=== PATIENT | male | born 1995 | race Caucasian/White ===

== ENCOUNTER 2016-09-16 14:10 | Emergency (ER) | payer BC ==
[~2016-09-16] VITALS: Ht 185.4 cm; Wt 65.0 kg
[2016-09-16 14:14] VITALS: BP 121/71; PULSE 84; RESP 16; TEMP 98.1; O2SAT 97
[2016-09-16] MEDS ORDERED: PROPARACAINE HCL 0.5% OPHT SOLN 15 ML BTL RIGHT EYE ONE (14:30)
[2016-09-16] MEDS ORDERED: MAXI5O EACH EYE (14:31)
[2016-09-16] MEDS ORDERED: IBUP800T23 PO (14:31)
--- NOTE | 2016-09-16 14:36 | PD ---
HPI Chief Complaint: Eye Problems/Injury Time Seen by Provider: 14:31 Travel History International Travel<30 days: No Contact w/Intl Traveler<30days: No Traveled to known affect area: No History of Present Illness HPI 21-year-old male presents the emergency Department with right eye pain and tearing and redness since yesterday. Patient states he felt he may have gotten a foreign body in it while working at a local [employer]. Patient states he does wear contacts which he took last night has not placed back in. Patient denies visual impairment of any kind. He denies fever chills or other symptoms. Denies crusting in the eye this morning. Patient has photophobia and pain of 7/10. He has no known drug allergies. PFSH Past Medical History Medical History: Denies Significant Hx Tetanus Vaccination: < 5 Years Influenza Vaccination: No Social History Alcohol Use: Yes (SOCIAL) Tobacco Use: No Substance Use: No Allergies-Medications (Allergen,Severity, Reaction): Coded Allergies: No Known Allergies (Unverified , 09/16/16) Reported Meds & Prescriptions Reported Meds & Active Scripts Active No Active Prescriptions or Reported Medications Review of Systems Except as stated in HPI: all other systems reviewed are Neg General / Constitutional: No: Fever Eyes: Positive: Photophobia, Redness, Foreign Body Sensation, Pain, Tearing, No: Diploplia, Blurred Vision, Drainage, Blind Spots, Visual changes, Blindness HENT: No: Headaches Cardiovascular: No: Chest Pain or Discomfort Respiratory: No: Shortness of Breath Gastrointestinal: No: Abdominal Pain Genitourinary: No: Dysuria Musculoskeletal: No: Pain Skin: No Rash Neurologic: No: Weakness Psychiatric: No: Depression Endocrine: No: Polydipsia Hematologic/Lymphatic: No: Easy Bruising Physical Exam Narrative GENERAL: Patient has moderate distress. SKIN: Warm and dry. Normal color. Normal turgor. No rash. HEAD: Atraumatic. Normocephalic. EYES: Pupils equal and round. No scleral icterus. Mild to moderate conjunctival injection on the right with tearing. Eyes examined with fluorescein as well as a was lamp without obvious corneal abrasion or foreign body. ENT: No nasal bleeding or discharge. Mucous membranes pink and moist. Pharynx is normal. NECK: Trachea midline. Neck is supple nontender. CARDIOVASCULAR: Regular rate and rhythm. RESPIRATORY: No accessory muscle use. MUSCULOSKELETAL: Extremities without clubbing, cyanosis, or edema. No obvious deformities. NEUROLOGICAL: Awake and alert. No obvious cranial nerve deficits. Motor grossly within normal limits. Five out of 5 muscle strength in the arms and legs. Normal speech. PSYCHIATRIC: Appropriate mood and affect; insight and judgment normal. Data Data Last Documented VS Vital Signs Date Time Temp Pulse Resp B/P Pulse Ox O2 Delivery O2 Flow Rate FiO2 09/16/16 14:14 98.1 84 16 121/71 97 Orders Proparacaine 0.5% Opth Soln (Alcaine 0.5 (09/16/16 14:30) MDM Medical Decision Making Medical Screen Exam Complete: Yes Emergency Medical Condition: Yes Differential Diagnosis Ocular Foreign body. Corneal abrasion. Traumatic conjunctivitis Narrative Course Patient is medically stable at time of exam. Right eye anesthetized with proparacaine, and examined with Wood's lamp and fluorescein dye without obvious foreign body or corneal abrasion. Patient will be treated with Maxitrol ophthalmic drops for the next 7 days. Patient given ibuprofen 800 mg 3 times daily with food #30. Work note is given for today. Patient is not to use his contacts for 7 days. 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 Patient will be treated with Maxitrol ophthalmic drops for the next 7 days. Patient given ibuprofen 800 mg 3 times daily with food #30. Work note is given for today. Patient is not to use his contacts for 7 days. 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 Scripts [id number]-Lrhqizmwhdgex Opth Drops (Maxitrol Opth Drops)3.5-10,000-0.1 Mg-Units-% Susp1 Drop EACH EYE Q4H #1 BOTTLE Prov:Karen Staples MD 09/16/16 Ibuprofen 800 Mg [id number] Mg PO Q8H PRN (Pain/Inflammation) #30 TAB Prov:Karen Staples MD 09/16/16 Disposition: 01 DISCHARGE HOME Condition: Stable Juan Daniel,Eliu F. PA Sep 16, 2016 14:36
== END 2016-09-16 14:58 | disposition home or self-care (01) ==
LOC: PHEFT 14:10
DX: H10.31 Unspecified acute conjunctivitis, right eye (principal)
CPT/HCPCS: 99283

== ENCOUNTER 2017-08-17 13:29 | Emergency (ER) | payer BC, OTHER ==
[~2017-08-17] VITALS: Ht 185.4 cm; Wt 67.0 kg
[~2017-08-17 13:29] MED LIST: IBUP1TAB7 PO; MAXI5O EACH EYE
[2017-08-17 13:32] VITALS: BP 151/68; PULSE 94; RESP 16; TEMP 98.3; O2SAT 99
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
[2017-08-17] MEDS ORDERED: NORC5TAB PO (15:11)
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
[2017-08-17] MEDS ORDERED: ACETAMINOPHEN/HYDROcodone 325 MG/5 MG TAB PO ONE (15:15)
== END 2017-08-17 15:26 | disposition home or self-care (01) ==
LOC: PHED 13:29
DX: S62.306A Unspecified fracture of fifth metacarpal bone, right hand, initial encounter for closed fracture (principal); V89.2XXA Person injured in unspecified motor-vehicle accident, traffic, initial encounter
CPT/HCPCS: 29125; 73130